=== PATIENT | female | born 1995 | race Caucasian/White ===

== ENCOUNTER 2016-07-20 19:38 | Observation (INO) | payer SELFPAY ==
[2016-07-20] MEDS ORDERED: ONDANSETRON 4 MG TAB.RAPDIS PO ONE (20:37)
[2016-07-20] MEDS ORDERED: DICYCLOMINE HCL 20 MG TABLET PO ONE (20:37)
--- NOTE | 2016-07-20 20:39 | ER Document Report ---
ED Medical Screen (RME) - General Chief Complaint: Abdominal Pain Stated Complaint: ABDOMINAL PAIN TRAVEL OUTSIDE OF THE [place] IN LAST 30 DAYS: No - HPI Patient complains to provider of: abdominal pain nausea vomiting diarrhea Notes: 07/20/16 20:38 Patient recently treated for upper her story infection with Augmentin still is on Augmentin now is having abdominal pain nausea vomiting diarrhea. 07/20/16 20:38 Patient sitting with water bottle in triage - Related Data Allergies/Adverse Reactions: No Known Allergies Allergy (Verified 07/20/16 19:53) Home Medications: Current Home Medications Medroxyprogesterone Acet [Provera 2.5 Mg Tablet] 1 tab PO DAILY 07/20/16 [ History] Past Medical History Renal/ Medical History: Denies: Hx Peritoneal Dialysis Past Surgical History: Reports: Hx Oral Surgery - Immunizations Immunizations up to date: Yes Hx Diphtheria, Pertussis, Tetanus Vaccination: Yes Review of Systems - Review of Systems Gastrointestinal: Abdominal pain, Diarrhea, Nausea, Vomiting Physical Exam - Vital signs Vitals: Temp Pulse Resp BP Pulse Ox 98.0 F 62 18 127/87 H 99 07/20/16 19:53 07/20/16 19:53 07/20/16 19:53 07/20/16 19:53 07/20/16 19:53 - Respiratory Respiratory status: No respiratory distress Chest status: Nontender Breath sounds: Normal Course - Vital Signs Vital signs: Temp Pulse Resp BP Pulse Ox 98.0 F 62 18 127/87 H 99 07/20/16 19:53 07/20/16 19:53 07/20/16 19:53 07/20/16 19:53 07/20/16 19:53
[2016-07-20 21:04] LABS: ABSOLUTE EOSINOPHILS # (AUTO) 0.2 10^3/uL (0.0-0.6); ABSOLUTE LYMPHOCYTES (AUTO) 2.2 10^3/uL (0.5-4.7); ABSOLUTE MONOCYTES (AUTO) 0.7 10^3/uL (0.1-1.4); ABSOLUTE NEUT (AUTO) 12.7 10^3/uL (1.7-8.2); BASOPHILS % (AUTO) 0.2 % (0-2); EOSINOPHILS % (AUTO) 1.1 % (0-6); HEMATOCRIT 40.3 % (36.0-47.0); HGB HCT DIFFERENCE 1.7; LYMPHOCYTES % (AUTO) 13.7 % (13-45); MEAN CORPUSCULAR HEMOGLOBIN 28.9 pg (27.0-33.4); MEAN CORPUSCULAR HGB CONC 34.6 g/dL (32.0-36.0); MEAN CORPUSCULAR VOLUME 84 fl (80-97); MONOCYTES % (AUTO) 4.4 % (3-13); RED BLOOD COUNT 4.83 10^6/uL (3.72-5.28); RED CELL DISTRIBUTION WIDTH 12.8 % (11.5-14.0); SEGMENTED NEUTROPHILS % (AUTO) 80.6 % (42-78); WHITE BLOOD COUNT 15.7 10^3/uL (4.0-10.5)
[2016-07-20 21:24] LABS: ALANINE AMINOTRANSFERASE 58 U/L (5-35); ALBUMIN 4.6 g/dL (3.7-5.6); ALKALINE PHOSPHATASE 42 U/L (50-135); ANION GAP 15 (5-19); ASPARTATE AMINO TRANSFERASE 24 U/L (5-30); BILIRUBIN,DIRECT 0.3 mg/dL (0.0-0.4); BILIRUBIN,TOTAL 0.6 mg/dL (0.2-1.3); BLOOD UREA NITROGEN 14 mg/dL (7-20); CARBON DIOXIDE 25 mmol/L (22-30); CHLORIDE 107 mmol/L (98-107); CREATININE RESULT 0.82 mg/dL (0.52-1.25); GLUCOSE 91 mg/dL (75-110); POTASSIUM 4.3 mmol/L (3.6-5.0); SODIUM 146.5 mmol/L (137-145); TOTAL PROTEIN 7.1 g/dL (6.3-8.2)
[2016-07-20 22:27] LABS: APPEARANCE,URINE SLIGHTLY-CLOUDY; BILIRUBIN,URINE NEGATIVE (NEGATIVE); GLUCOSE, URINE NEGATIVE (NEGATIVE); KETONES,URINE TRACE mg/dL (NEGATIVE); LEUKOCYTE ESTERASE,URINE NEGATIVE (NEGATIVE); NITRITE,URINE NEGATIVE (NEGATIVE); PROTEIN,URINE NEGATIVE (NEGATIVE); URINE SPECIFIC GRAVITY 1.031; UROBILINOGEN,URINE NEGATIVE mg/dL (<2.0)
[2016-07-20] MEDS ORDERED: NORMAL SALINE 1000 ML 1,000 ML IV ONE (23:09)
[2016-07-20] MEDS ORDERED: KETOROLAC TROMETHAMINE INJ/PF 30 MG/1 ML SDV IV ONE (23:09)
--- NOTE | 2016-07-20 23:10 | ER Document Report ---
ED General - General Chief Complaint: Abdominal Pain Stated Complaint: ABDOMINAL PAIN Notes: Patient is a 20-year-old female without past medical history, no prior surgical history who presents with 2 weeks of diarrhea and approximately 12 hours of progressively worsening diffuse abdominal pain. Describes the pain as being diffuse although worse in the right lower quadrant. It is stabbing, cramping and constant. Nothing improves or worsens the pain. She has had one episode of associated vomiting. She's had 5 total episodes of watery diarrhea today. She denies any history of similar symptoms in the past. She saw her primary care physician regarding the diarrheal episodes and was started on Augmentin for concerns of a sinus infection without improvement of her symptoms. She has not had any vaginal bleeding or discharge. She denies any melena, hematochezia or hemoptysis. TRAVEL OUTSIDE OF THE [place] IN LAST 30 DAYS: No - Related Data Allergies/Adverse Reactions: No Known Allergies Allergy (Verified 07/20/16 19:53) Home Medications: Current Home Medications Medroxyprogesterone Acet [Provera 2.5 Mg Tablet] 1 tab PO DAILY 07/20/16 [ History] Past Medical History - General Information source: Patient - Social History Smoking Status: Never Smoker Frequency of alcohol use: None Drug Abuse: None Lives with: Family Family History: Reviewed & Not Pertinent Patient has suicidal ideation: No Patient has homicidal ideation: No Renal/ Medical History: Denies: Hx Peritoneal Dialysis Past Surgical History: Reports: Hx Oral Surgery - Immunizations Immunizations up to date: Yes Hx Diphtheria, Pertussis, Tetanus Vaccination: Yes Review of Systems - Review of Systems Notes: Constitutional: Negative for fever. HENT: Negative for sore throat. Eyes: Negative for visual changes. Cardiovascular: Negative for chest pain. Respiratory: Negative for shortness of breath. Gastrointestinal: Positive for abdominal pain, vomiting and diarrhea. Genitourinary: Negative for dysuria. Musculoskeletal: Negative for back pain. Skin: Negative for rash. Neurological: Negative for headaches, weakness or numbness. 10 point ROS negative except as marked above and in HPI. Physical Exam - Vital signs Vitals: Temp Pulse Resp BP Pulse Ox 98.0 F 62 18 127/87 H 99 07/20/16 19:53 07/20/16 19:53 07/20/16 19:53 07/20/16 19:53 07/20/16 19:53 Interpretation: Normal Notes: PHYSICAL EXAMINATION: GENERAL: Appears uncomfortable and in significant pain. HEAD: Atraumatic, normocephalic. EYES: Pupils equal round and reactive to light, extraocular movements intact, sclera anicteric, conjunctiva are normal. ENT: nares patent, oropharynx clear without exudates. Moderately dry mucous membranes. NECK: Normal range of motion, supple without lymphadenopathy LUNGS: Breath sounds clear to auscultation bilaterally and equal. No wheezes rales or rhonchi. HEART: Regular rate and rhythm without murmurs ABDOMEN: Soft, diffuse tenderness on palpation most focal in the right lower quadrant. She does have voluntary guarding throughout. Rebound tenderness is present in the right lower quadrant EXTREMITIES: Normal range of motion, no pitting or edema. No cyanosis. NEUROLOGICAL: No focal neurological deficits. Moves all extremities spontaneously and on command. PSYCH: Anxious, tearful. SKIN: Warm, Dry, normal turgor, no rashes or lesions noted. Course - Re-evaluation Re-evalutation: 07/20/16 23:09 Patient presents with diffuse abdominal pain with associated nausea, vomiting and diarrhea that is not been present for 14 days. This is consistent with likely infectious colitis she does have diffuse abdominal tenderness with guarding throughout. This pain did start spontaneously earlier today and patient is in visible pain at time of assessment, tearful. Will proceed with CT the abdomen and pelvis to exclude a possible perforation vs appendicitis given the worst tenderness is in the RLQ. Also provide analgesia, antiemetics and IV fluids. 07/21/16 01:59 CT shows acute appendicitis. Patient now has localized pain only to the RLQ. I have discussed The case with the surgeon director of player personnel will admit the patient for surgical management. IV Zosyn has been started. Patient is nothing by mouth. - Vital Signs Vital signs: Temp Pulse Resp BP Pulse Ox 98.0 F 62 18 127/87 H 99 07/20/16 19:53 07/20/16 19:53 07/20/16 19:53 07/20/16 19:53 07/20/16 19:53 - Laboratory Result Diagrams: 07/20/16 20:40 07/20/16 20:40 Laboratory results interpreted by me: 04/02/17 04/02/17 04/02/17 20:40 20:40 22:10 WBC 15.7 H Seg Neutrophils % 80.6 H Absolute Neutrophils 12.7 H Sodium 146.5 H ALT 58 H Alkaline Phosphatase 42 L Urine Ketones TRACE H Urine Blood MODERATE H - Diagnostic Test Radiology reviewed: Reports reviewed Discharge - Discharge Clinical Impression: Acute appendicitis Qualifiers: Acute appendicitis type: with generalized peritonitis Qualified Code(s): K35.2 - Acute appendicitis with generalized peritonitis Disposition: ADMITTED OBSERVATION Admitting Provider: Surgicalist - [facility] Admitted: OR
[2016-07-20] MEDS: MORPHINE SULFATE 10 MG/ML INJ IV PRN (23:23)
[2016-07-20] MEDS ORDERED: HYOSCYAMINE SULFATE 0.125 MG TABLET PO ONE (23:23)
[2016-07-21] MEDS ORDERED: PIPERACILLIN/TAZOBACTAM 3.375 GM VIAL IV ONE (02:00)
[2016-07-21] MEDS ORDERED: NORMAL SALINE 1000 ML 1,000 ML IV ONE (02:01)
[2016-07-21] MEDS: MORPHINE SULFATE 10 MG/ML INJ IV PRN (02:47)
[2016-07-21] MEDS ORDERED: ONDANSETRON HCL INJ/PF 4 MG/2 ML SDV ONE ×2 (02:50→09:22)
[2016-07-21] MEDS ORDERED: ONDANSETRON HCL INJ/PF 4 MG/2 ML SDV IV ONE (03:03)
[2016-07-21] MEDS ORDERED: HYDROMORPHONE HCL INJ/PF 2 MG/ML AMPULE ONE (05:38)
[2016-07-21] MEDS ORDERED: FENTANYL CITRATE INJ/PF 100 MCG/2 ML AMPUL ONE (06:32)
[2016-07-21] MEDS ORDERED: ACETAMINOPHEN 100 ML IV ONE (06:33)
[2016-07-21] MEDS ORDERED: PROPOFOL INJ 200 MG/20 ML VIAL IV ONE (06:33)
[2016-07-21] MEDS ORDERED: EPHEDRINE SULFATE INJ 50 MG/1 ML AMPULE ONE (06:33)
[2016-07-21] MEDS ORDERED: MIDAZOLAM 2 MG/2 ML INJ ONE (06:33)
[2016-07-21] MEDS ORDERED: MORPHINE SULFATE 10 MG/ML INJ ONE (06:33)
[2016-07-21] MEDS ORDERED: BUPIVACAINE HCL 0.25 % INJ/PF (2.5 MG/1 ML) 30 ML VIAL ONE (06:45)
[2016-07-21] MEDS ORDERED: BUPIVACAINE HCL 0.25% /EPINEPHRINE INJ/PF 30 ML SDV ONE (07:10)
[2016-07-21] MEDS ORDERED: PROMETHAZINE HCL INJ 25 MG/1 ML VIAL IV PRN ×2 (07:53)
[2016-07-21] MEDS ORDERED: DIPHENHYDRAMINE HCL 50 MG/ML VIAL IV PRN (07:53)
[2016-07-21] MEDS ORDERED: FENTANYL CITRATE INJ/PF 100 MCG/2 ML AMPUL IV PRN ×3 (07:53)
[2016-07-21] MEDS ORDERED: MEPERIDINE HCL/PF INJ 25 MG/1 ML DISP.SYRIN IV PRN (07:53)
[2016-07-21] MEDS ORDERED: OXYCODONE-ACETAMINOPHEN 5-325 MG TABLET PO PRN ×2 (07:53)
[2016-07-21] MEDS ORDERED: MORPHINE SULFATE 10 MG/ML INJ IV PRN (07:53)
[2016-07-21] MEDS ORDERED: HYDROMORPHONE HCL INJ/PF 2 MG/ML AMPULE IV PRN (09:16)
[2016-07-21] MEDS ORDERED: ONDANSETRON HCL INJ/PF 4 MG/2 ML SDV IV PRN (09:17)
[2016-07-21] MEDS ORDERED: NORMAL SALINE 1000 ML 1,000 ML IV PRN (09:18)
--- NOTE | 2016-07-21 09:43 | OPERATIVE REPORT E ---
Operative Report NAME: PHILLIP CALLE : 1995 AGE: 20Y DATE OF SURGERY: 07/21/2016 ROOM: 208 PREOPERATIVE DIAGNOSIS: ACUTE APPENDICITIS. POSTOPERATIVE DIAGNOSIS: ACUTE APPENDICITIS. OPERATION: Laparoscopic appendectomy. SURGEON: GUSTAVO HENDERSON M.D. INDICATION: This is a 20-year-old female with abdominal pains for the past 24 hours, associated with nausea, and vomiting. She came to the emergency room and noted to have acute appendicitis on a CAT scan. DESCRIPTION OF PROCEDURE: After adequate general anesthesia, the abdomen was then prepped and draped in the usual sterile fashion. An appropriate time out was then called. Next, an infraumbilical elliptical incision was then made and the fascia elevated and divided with a #15 blade. The opening was then dilated with a Mela clamp down into the abdominal cavity. A 12 mm Tereso trocar was then inserted into the abdominal cavity and CO2 insufflated to this trocar, up pressure of 15 mmHg. Next, a 5 mm trocar placed in the suprapubic area and a 12 mm in the left lower quadrant area under direct vision. Next, the appendix was then identified and noted to be quite inflamed. It was also quite retrocecal. The cecum had some adhesions in the abdominal wall, which was lysed with harmonic windy. The appendix was then lifted up and part of the mesoappendix divided with harmonic windy down to the cecal area. The appendix noted to be normal. *------* of the cecum,and this was then stapled with an endo CARINE. The appendix placed in an Endobag and pulled out through the left lower quadrant port. Next, hemostasis then checked and noted to have no active bleeding noted. This was irrigated with saline solution. The stump looks good. Rest of the abdominal cavity was inspected. No other obvious abnormality noted. The trocars were then removed and CO2 allowed through the trocar sites. The infraumbilical fascia was then closed with single [id number] suture using 0 Vicryl. All the skin incisions were then closed with running subcuticular closure using 4-0 Monocryl. A Dermabond dressing was then placed over the incision sites. Needle, instrument, and sponge counts were all correct, and estimated blood loss was minimal. Patient then brought to the recovery room in satisfactory condition. DICTATING PHYSICIAN: GUTSAVO HENDERSON M.D. [id number] PHY#: [id number] ID: [id number] JOB#: [id number] ACCT: [id number] cc:GUSTAVO HENDERSON M.D. >
[2016-07-21] MEDS: PIPERACILLIN SODIUM/TAZOBACTAM 3.375 GM in NORMAL SALINE 100 ML IV SCH ×2 (12:04→17:34)
[2016-07-21] MEDS ORDERED: SUCCINYLCHOLINE CHLORIDE INJ 200 MG/10 ML VIAL ONE (12:21)
[2016-07-21] MEDS ORDERED: LIDOCAINE 2% INJ-PF (20 MG/ML) 10 ML AMPUL ONE (12:21)
[2016-07-21] MEDS ORDERED: GLYCOPYRROLATE INJ 0.4 MG/2 ML VIAL ONE (12:21)
[2016-07-21] MEDS ORDERED: NEOSTIGMINE METHYLSULFATE 10 MG/10 ML VIAL ONE (12:21)
[2016-07-21] MEDS ORDERED: KETOROLAC TROMETHAMINE 60 MG/2 ML SDV ONE (12:21)
[2016-07-21] MEDS ORDERED: ROCURONIUM BROMIDE INJ 50 MG/5 ML VIAL IV ONE (12:21)
[2016-07-21] MEDS ORDERED: PHENYLEPHRINE HCL INJ/PF 10 MG/1 ML SDV ONE (12:21)
[2016-07-21] MEDS: OXYCODONE-ACETAMINOPHEN 5-325 MG TABLET PO PRN ×2 (15:42→20:15)
[2016-07-21 20:13] VITALS: BP 102/58
--- NOTE | 2016-07-21 20:48 | DISCHARGE SUMMARY E ---
Discharge Summary NAME: PHILLIP CALLE : 1995 AGE: 20Y ADMITTED: 07/21/2016 DISCHARGED: 07/21/2016 REASON FOR ADMISSION: Acute abdominal pain. SUMMARY OF HOSPITALIZATION: The patient is a 20-year-old female who presented to the emergency department complaining of abdominal pain. She was found to have right lower quadrant tenderness and a leukocytosis. CT scan revealed findings consistent with acute appendicitis. She was admitted to the surgicalist service for definitive management. The patient was taken to the operating room by Dr. Tirado where she underwent laparoscopic appendectomy. The patient tolerated the procedure well. There were no complications. Later that day, she was getting about well, tolerating a diet and ready for discharge home. FINAL DIAGNOSIS: Acute appendicitis status post laparoscopic appendectomy. DISPOSITION: The patient can be discharged home to the care of her family, follow up with [facility] in approximately 1 to 2 weeks and be on a restricted activity status. She will take Tylenol or Motrin p.r.n. pain. DICTATING PHYSICIAN: AGATHA CAIN M.D. [id number] PHY#: [id number] ID: [id number] JOB#: [id number] ACCT: [id number] cc:SHIRA JOHNSON MD, M.D TIMOTHY PATSELAS, M.D. >
== END 2016-07-21 21:29 | disposition home or self-care (01) ==
LOC: ER 19:38 → EH 07-21 02:29 → UNDOADMOB 07-21 02:29 → EH 07-21 03:53 → 2N 07-21 03:53 → EH 07-21 04:30 → 2N 07-21 04:30
PROVIDERS: ATTEND Surgery
PROC: 0DTJ4ZZ Resection of Appendix, Percutaneous Endoscopic Approach (ICD-10-PCS; principal; 2016-07-20)
DX: K35.80 Unspecified acute appendicitis (principal)
CPT/HCPCS: 36415; 84702; 83690; 85025; 80053; 81001; 88304 ×2; 74177; 44970; G0378; J2250; J3490 ×4; J1885 ×2; S0119; J3010; J2270 ×2; J2370; J0330; J2405; J7030; J2704; J2543; J0131; 840

== ENCOUNTER → 2019-09-23 | Outpatient (CLI) | payer BC ==
--- NOTE | 2019-09-24 10:42 | RADIOLOGY REPORT (SQ) ---
EXAM DESCRIPTION: MRI HEAD COMBO IMAGES COMPLETED DATE/TIME: 09/23/2019 6:38 pm REASON FOR STUDY: SZ ACTIVITY, SYNCOPAL EPISODES COMPARISON: None. TECHNIQUE: Multiplanar imaging includes noncontrasted T1, T2, FLAIR, diffusion with ADC map and post gadolinium contrast T1 sequences. Images stored on PACS. CONTRAST TYPE AND DOSE: 20 mL Prohance. RENAL FUNCTION: Not indicated. ACR Type II contrast agent associated with few, if any, unconfounded cases of NSF LIMITATIONS: None. FINDINGS: ANATOMY: No anomalies. Normal vascular flow voids. Pituitary fossa normal. CSF SPACES: Normal in size and contour. No hemorrhage. CEREBRUM: Sulci and gyri normal in size and contour. Normal white matter signal on FLAIR imaging. No evidence of hemorrhage, mass, or extraaxial fluid collection. No abnormal enhancement post contrast. POSTERIOR FOSSA: No signal alteration. No hemorrhage. No edema, masses, or mass effect. Internal zena tory canals, cerebellopontine angles, mastoids normal. No enhancing lesions. No abnormal enhancement post contrast. DIFFUSION IMAGING: Negative for acute or subacute infarction. ORBITS: No masses. Globes normal. PARANASAL SINUSES: No fluid levels. Mucosa normal. OTHER: No other significant finding. IMPRESSION: NORMAL MRI OF THE BRAIN WITHOUT AND WITH INTRAVENOUS GADOLINIUM CONTRAST. EVIDENCE OF ACUTE STROKE: NO. TECHNICAL DOCUMENTATION: JOB ID: [id number] 2010 [employer]- All Rights Reserved Reading location - IP/workstation name: [email or web address]
== END ==
LOC: RAD 17:32
PROVIDERS: ATTEND Nurse Practitioner Family
DX: R56.9 Unspecified convulsions (principal); R55 Syncope and collapse
CPT/HCPCS: 70553; A9576